=== PATIENT | male | born 1990 | race African-American/Black ===

== ENCOUNTER 2017-12-23 21:08 | Emergency (ER) | payer OTHER ==
[2017-12-23 21:22] VITALS: BP 103/70; PULSE 67; TEMP 98.1; BMI 25.5
[2017-12-23] MEDS ORDERED: CYCLOBENZAPRINE HCL 10 MG TABLET (FP) PO ONE (21:49)
[2017-12-23] MEDS ORDERED: KETOROLAC TROMETHAMINE 60 MG/2 ML VIAL IM ONE (21:49)
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
[2017-12-23] MEDS ORDERED: KETOROLAC TROMETHAMINE 60 MG/2 ML VIAL ONE (22:01)
[2017-12-23] MEDS ORDERED: CYCLOBENZAPRINE HCL 10 MG TABLET (FP) ONE (22:01)
== END 2017-12-23 22:22 | disposition home or self-care (01) ==
LOC: JERFT 21:08
PROC: 3E0233Z Introduction of Anti-inflammatory into Muscle, Percutaneous Approach (ICD-10-PCS; principal; 2017-12-23)
DX: S16.1XXA Strain of muscle, fascia and tendon at neck level, initial encounter (principal); V43.52XA Car driver injured in collision with other type car in traffic accident, initial encounter; Y92.414 Local residential or business street as the place of occurrence of the external cause; Y93.89 Activity, other specified; Y99.8 Other external cause status
CPT/HCPCS: 72050-TC-FY; 99281-25

== ENCOUNTER 2018-01-19 06:08 | Emergency (ER) | payer OTHER ==
[2018-01-19 06:22] VITALS: BP 118/64; PULSE 85; TEMP 98.2; BMI 22.8
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
[2018-01-19] MEDS: CYCLOBENZAPRINE HCL 5 MG TABLET PO ONE ×3 (07:55→08:38)
[2018-01-19] MEDS ORDERED: LIDOCAINE 5% TOPICAL PATCH TP ONE (07:57)
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
[2018-01-19] MEDS ORDERED: CYCLOBENZAPRINE HCL 10 MG TABLET (FP) ONE (08:05)
[2018-01-19] MEDS ORDERED: LIDOCAINE 5% TOPICAL PATCH ONE (08:05)
[2018-01-19] MEDS ORDERED: ACETAMINOPHEN 325 MG TABLET (FP) ONE (08:05)
[2018-01-19] MEDS: ACETAMINOPHEN 325 MG TABLET (FP) PO ONE ×2 (08:32→08:38)
[2018-01-19] MEDS ORDERED: LIDOCAINE PATCH REMOVAL MC SCH (22:00)
== END 2018-01-19 09:00 | disposition home or self-care (01) ==
LOC: JER 06:08
DX: S16.1XXA Strain of muscle, fascia and tendon at neck level, initial encounter (principal); V43.52XA Car driver injured in collision with other type car in traffic accident, initial encounter; Y92.414 Local residential or business street as the place of occurrence of the external cause; Y93.89 Activity, other specified; Y99.8 Other external cause status
CPT/HCPCS: 99282-25